=== PATIENT | male | born 1965 | race Caucasian/White ===

== ENCOUNTER 2018-07-16 21:59 | Emergency (ER) | payer BC ==
[~2018-07-16] VITALS: Ht 175.3 cm; Wt 83.9 kg
[~2018-07-16 21:59] MED LIST: CLIN300 PO; CYCL10 PO; DIAZ10 PO; DIAZ5 PO; HYDACE10B PO; HYDACE5; HYDACE5 PO; HYDMOR2 PO; IBUP800; IBUP800 PO; NAPR500 PO; OXYACE10 PO; PENVK500; PENVK500 PO
[2018-07-16] MEDS ORDERED: DULO60 PO (22:06)
[2018-07-16 22:50] LABS: BASOPHILS ABSOLUTE AUTO 0.07 K/mm3 (0.00-0.23); BASOPHILS PERCENT AUTO 1 % (0-2); EOSINOPHILS ABSOLUTE AUTO 0.17 K/mm3 (0.00-0.68); EOSINOPHILS PERCENT AUTO 2 % (0-6); Hematocrit 50.9 % (37.0-53.0); Hemoglobin 16.8 g/dL (13.5-17.5); IMMATURE GRAN ABSOLUTE AUTO 0.02 K/mm3 (0.00-0.10); IMMATURE GRAN PERCENT AUTO 0 % (0-1); LYMPHOCYTES ABSOLUTE AUTO 1.55 K/mm3 (0.84-5.20); LYMPHOCYTES PERCENT AUTO 19 % (21-46); MONOCYTES ABSOLUTE AUTO 0.49 K/mm3 (0.16-1.47); MONOCYTES PERCENT AUTO 6 % (4-13); Mean Corpuscular Volume 91 fL (80-100); Mean Platelet Volume 9.8 fL (9.1-12.4); NEUTROPHILS ABSOLUTE AUTO 5.69 K/mm3 (1.96-9.15); NEUTROPHILS PERCENT AUTO 71 % (41-73); Platelet Count 242 K/mm3 (150-400); RDW Coefficient Variation 12.7 % (11.7-14.2); RDW Standard Deviation 42.5 fL (35.1-46.3); White Blood Cell Count 7.99 K/mm3 (4.00-11.30)
[2018-07-16 23:09] LABS: Alanine Aminotransfer (ALT/SGP 21 U/L (12-78); Albumin, Blood 4.2 g/dL (3.4-5.0); Alk Phos 70 U/L (50-136); Anion Gap 6 mmol/L (6-16); Aspartate Aminotrans (AST/SGOT 21 U/L (12-37); Bilirubin, Total 0.4 mg/dL (0.1-1.0); Blood Urea Nitrogen 15 mg/dL (8-24); Bun/Creatinine Ratio 13.6 (12.0-20.0); C-REACTIVE PROTEIN, EXT RANGE 0.375 mg/dL (0.000-0.300); CO2, Blood 28 mmol/L (21-32); Calcium, Blood 8.8 mg/dL (8.5-10.1); Chloride, Blood 106 mmol/L (98-108); Glomerular Filtration Rate >60 (60-); Glucose, Blood 92 mg/dL (70-99); Potassium, Blood 4.1 mmol/L (3.5-5.5); Sodium, Blood 140 mmol/L (136-145); Total Protein, Blood 8.2 g/dL (6.4-8.2)
== END 2018-07-17 00:53 | disposition left against medical advice (07) ==
LOC: ER 21:59
PROVIDERS: Emergency Medicine
DX: M71.22 Synovial cyst of popliteal space [Baker], left knee (principal); Z79.899 Other long term (current) drug therapy; I10 Essential (primary) hypertension; F17.210 Nicotine dependence, cigarettes, uncomplicated
CPT/HCPCS: 36415; 73590; 80053; 85025; 85651; 86140; 93971; 96360; 99284-25; J7030

== ENCOUNTER 2018-12-21 16:59 | Emergency (ER) | payer MEDICAID ==
[~2018-12-21] VITALS: Ht 175.3 cm; Wt 99.8 kg
[~2018-12-21 16:59] MED LIST changes: +ARIP10 PO; +DULO60 PO; +INVEGA PO; +TRAZ50 PO
[2018-12-21 17:58] LABS: BASOPHILS ABSOLUTE AUTO 0.07 K/mm3 (0.00-0.23); BASOPHILS PERCENT AUTO 1 % (0-2); EOSINOPHILS ABSOLUTE AUTO 0.32 K/mm3 (0.00-0.68); EOSINOPHILS PERCENT AUTO 5 % (0-6); Hematocrit 54.2 % (37.0-53.0); Hemoglobin 17.4 g/dL (13.5-17.5); IMMATURE GRAN ABSOLUTE AUTO 0.02 K/mm3 (0.00-0.10); IMMATURE GRAN PERCENT AUTO 0 % (0-1); LYMPHOCYTES ABSOLUTE AUTO 1.19 K/mm3 (0.84-5.20); LYMPHOCYTES PERCENT AUTO 19 % (21-46); MONOCYTES ABSOLUTE AUTO 0.42 K/mm3 (0.16-1.47); MONOCYTES PERCENT AUTO 7 % (4-13); Mean Corpuscular HGB Conc 32.1 g/dL (31.5-36.5); Mean Corpuscular Volume 91 fL (80-100); Mean Platelet Volume 10.2 fL (9.1-12.4); NEUTROPHILS ABSOLUTE AUTO 4.14 K/mm3 (1.96-9.15); NEUTROPHILS PERCENT AUTO 67 % (41-73); Platelet Count 265 K/mm3 (150-400); RDW Coefficient Variation 13.3 % (11.7-14.2); RDW Standard Deviation 44.8 fL (35.1-46.3); Red Blood Cell Count 5.99 M/mm3 (4.30-5.90); White Blood Cell Count 6.16 K/mm3 (4.00-11.30)
[2018-12-21 18:28] LABS: Alanine Aminotransfer (ALT/SGP 24 U/L (12-78); Albumin, Blood 3.9 g/dL (3.4-5.0); Albumin/Globulin Ratio 1.1 (0.8-1.8); Alk Phos 67 U/L (50-136); Anion Gap 5 mmol/L (6-16); Aspartate Aminotrans (AST/SGOT 19 U/L (12-37); Bilirubin, Total 0.3 mg/dL (0.1-1.0); Blood Urea Nitrogen 12 mg/dL (8-24); Bun/Creatinine Ratio 12.4 (12.0-20.0); CO2, Blood 29 mmol/L (21-32); Calcium, Blood 8.6 mg/dL (8.5-10.1); Chloride, Blood 107 mmol/L (98-108); Creatinine, Blood 0.97 mg/dL (0.60-1.20); Globulin, Blood 3.6 g/dL (2.2-4.0); Glomerular Filtration Rate >60 (60-); Glucose, Blood 83 mg/dL (70-99); Potassium, Blood 4.5 mmol/L (3.5-5.5); Salicylate 2.5 mg/dL (2.8-20.0); Sodium, Blood 141 mmol/L (136-145); Total Protein, Blood 7.5 g/dL (6.4-8.2)
[2018-12-21] MEDS ORDERED: TRAZ50 PO (18:30)
[2018-12-21 18:32] LABS: Thyroid Stimulating Hormone 0.377 uIU/mL (0.360-4.800)
[2018-12-21 18:33] LABS: Acetaminophen, Random <2.0 ug/mL (10.0-30.0); Ethanol (Alcohol), Blood, Med <3 mg/dL
[2018-12-21 18:54] LABS: Source, Urine Clean Catch
[2018-12-21 19:10] LABS: Appearance, Urine Clear (Clear); Bilirubin, Urine Neg (Neg); Blood, Urine Neg (Neg); Color, Urine Yellow (P-Yellow); Glucose Qualitative, Urine Neg (Neg); Ketones, Urine Neg (Neg); Leukocyte Esterase, Urine Neg (Neg); Nitrite, Urine Neg (Neg); Protein, Urine Neg (Neg); Specific Gravity, Urine 1.015 (1.003-1.022); Urobilinogen, Urine NORM (Normal)
[2018-12-21 19:25] LABS: U Amphetamine Screen DETECTED; U Methamphetamine Screen DETECTED
[2018-12-21 19:26] LABS: U Barbituate Screen Not Detected; U Benzodiazapine Screen Not Detected; U Buprenorphine Screen Not Detected; U Cannabinoids Screen Not Detected; U Cocaine Screen Not Detected; U Methadone Screen Not Detected; U Opiates Screen Not Detected; U Oxycodone Screen Not Detected; U Phencyclidine Screen Not Detected; U Propoxyphene Screen Not Detected
== END 2018-12-21 19:23 | disposition left against medical advice (07) ==
LOC: ER 16:59
PROVIDERS: Physician Assistant
DX: F32.9 Major depressive disorder, single episode, unspecified (principal); R45.4 Irritability and anger; Z53.21 Procedure and treatment not carried out due to patient leaving prior to being seen by health care provider
CPT/HCPCS: 36415; 80053; 81003; 84443; 85025; 99284; G0480

== ENCOUNTER 2019-04-20 20:35 | Emergency (ER) | payer SELFPAY ==
[~2019-04-20] VITALS: Ht 172.7 cm; Wt 93.0 kg
[2019-04-20] MEDS ORDERED: CLON.1 PO (21:40)
[2019-04-20] MEDS ORDERED: DULO60 PO (21:40)
[2019-04-20] MEDS ORDERED: Bactrim Ds Tab1 EACH PO (23:06)
[2019-04-20] MEDS ORDERED: CEPH500 PO (23:06)
[2019-06-06] MEDS ORDERED: Nystatin15 GM TOP (02:37)
[2019-06-06] MEDS ORDERED: CEPH500 PO (02:37)
== END 2019-04-20 23:14 | disposition home or self-care (01) ==
LOC: ER 20:35
DX: L03.113 Cellulitis of right upper limb (principal); Z79.899 Other long term (current) drug therapy; I10 Essential (primary) hypertension; F17.210 Nicotine dependence, cigarettes, uncomplicated
CPT/HCPCS: 99283